=== PATIENT | female | born 2000 ===

== ENCOUNTER 2022-02-23 13:03 | Emergency (ER) | payer SELFPAY ==
[2022-02-23 14:13] VITALS: BP 111/65
--- NOTE | 2022-02-23 17:45 | XRay Report ---
PELVIS 2 VIEW(S) INDICATION / CLINICAL INFORMATION: fall with pelvic pain COMPARISON: None available. FINDINGS: BONES / JOINT(S): No acute fracture or subluxation. No significant arthritis. SOFT TISSUES: No significant abnormality. ADDITIONAL FINDINGS: Mesh coils noted in the overlying the central abdomen. Signer Name: Cesario Loya DO Signed: 02/23/2022 5:41 PM Workstation Name: [id number]
== END 2022-02-24 09:54 | disposition left against medical advice (07) ==
LOC: ED 13:03
DX: S72.009A Fracture of unspecified part of neck of unspecified femur, initial encounter for closed fracture (principal); Z53.21 Procedure and treatment not carried out due to patient leaving prior to being seen by health care provider; X58.XXXA Exposure to other specified factors, initial encounter; Y93.89 Activity, other specified; Y92.89 Other specified places as the place of occurrence of the external cause; Y99.8 Other external cause status
CPT/HCPCS: 72170